=== PATIENT | male | born 1990 | race Caucasian/White ===

== ENCOUNTER 2020-01-18 23:59 | Emergency (ER) | payer BC ==
[~2020-01-18] VITALS: Ht 180.3 cm; Wt 117.9 kg
[2020-01-19 00:13] VITALS: BP 149/92; Ht 180.3 cm; Wt 117.9 kg
== END 2020-01-19 02:17 | disposition left against medical advice (07) ==
LOC: ED 23:59
DX: Z53.21 Procedure and treatment not carried out due to patient leaving prior to being seen by health care provider (principal)